=== PATIENT | male | born 1985 | race Caucasian/White ===

== ENCOUNTER 2016-07-21 20:46 | Emergency (ER) | payer BC ==
[2016-07-21] MEDS ORDERED: Lidocaine 1% 10 MG/ML - 20 ML VIAL SUBCUT ONE (21:09)
[2016-07-21] MEDS ORDERED: Lidocaine Inj 1% 20 ML ONE (21:11)
[2016-07-21] MEDS ORDERED: SULFAMETHOXAZOLE/TRIMETHOPRIM 800/160 MG TABLET PO ONE (21:31)
[2016-07-22 00:59] VITALS: RESP 18; TEMP 97
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
== END 2016-07-21 21:40 | disposition home or self-care (01) ==
LOC: ER 20:46
DX: L02.416 Cutaneous abscess of left lower limb (principal); M79.662 Pain in left lower leg; L98.8 Other specified disorders of the skin and subcutaneous tissue
CPT/HCPCS: 10060; 87070; 87077; 87205; 99282; J2001